=== PATIENT | male | born 1975 | race Caucasian/White ===

== ENCOUNTER 2017-11-25 08:21 | Emergency (ER) | payer MEDICAID | END 2017-11-25 09:52 | disposition home or self-care (01) | LOC: PHED 08:21 | DX: M25.561 Pain in right knee (principal); Z87.442 Personal history of urinary calculi; Z88.5 Allergy status to narcotic agent | CPT/HCPCS: 73564; 99283 ==

== ENCOUNTER 2017-12-20 10:50 | Emergency (ER) | payer MEDICAID ==
[~2017-12-20] VITALS: Ht 177.8 cm; Wt 100.0 kg
[2017-12-20 10:54] VITALS: BP 176/92; PULSE 104; RESP 16; TEMP 98.7; O2SAT 98
--- NOTE | 2017-12-20 11:29 | PD ---
HPI Chief Complaint: Cold / Flu Symptoms Time Seen by Provider: 11:07 Travel History International Travel<30 days: No Contact w/Intl Traveler<30days: No Traveled to known affect area: No History of Present Illness HPI 42-year-old male presents to the emergency room for evaluation of body aches, nonproductive cough, congestion, mild sore throat, and fever for the past 2-3 days. Maximum temperature was 101.7. Sore throat is mild and only occurs with coughing. He has been taking Motrin for body aches and fever with moderate relief in symptoms. Denies any chronic medical conditions or daily medications. PFSH Past Medical History Cancer: No Diabetes: No Diminished Hearing: No Hepatitis: No Hiatal Hernia: No Hypertension: No Kidney Stones: Yes (NOV 2011) Musculoskeletal: Yes (THORACIC OUTLET SYNDROME) Immunizations Current: Yes Thyroid Disease: No PNEUMOCCOCAL Vaccine (Year): 2 Past Surgical History Endocrine Surgery: Yes (THYMUS GLAND REMOVED 2001) Thoracic Surgery: Yes (X 2 FOR THORACIC OUTLET SYMDROME left shoulder) Other Surgery: Yes (Thymectomy) Social History Alcohol Use: Yes (rare) Tobacco Use: No (Quit 6 MONTHS ago) Substance Use: No (Denies) Allergies-Medications (Allergen,Severity, Reaction): Coded Allergies: hydromorphone (Unverified Allergy, Severe, hives, 12/20/17) meperidine (Unverified Allergy, Severe, "HIVES", 12/20/17) morphine (Unverified Allergy, Severe, "GET VIOLENT", 12/20/17) fentanyl (Unverified Allergy, Intermediate, Itching, 12/20/17) Reported Meds & Prescriptions Reported Meds & Active Scripts Active No Active Prescriptions or Reported Medications Review of Systems Except as stated in HPI: all other systems reviewed are Neg Physical Exam Narrative GENERAL: Well-nourished, well-developed male in no acute distress. Afebrile. Ambulatory. SKIN: Focused skin assessment warm/dry. HEAD: Normocephalic. EYES: No scleral icterus. No injection or drainage. NECK: Supple, trachea midline. No JVD or lymphadenopathy. ENT: Mucosa pink and moist. No erythema or exudates. No uvular edema. No uvular , palatal, or tonsillar deviation. Airway patent. Nasal turbinates appear normal without nasal blood, purulent drainage or septal hematoma. EARS: Bilateral pinnae and external canals appear within normal limits. Bilateral tympanic membranes without erythema, dullness or perforation. CARDIOVASCULAR: Regular rate and rhythm without murmurs, gallops, or rubs. RESPIRATORY: Breath sounds equal bilaterally. No accessory muscle use. There is Rales to the left upper lobe. No crackles or rhonchi. Data Data Last Documented VS Vital Signs Date Time Temp Pulse Resp B/P (MAP) Pulse Ox O2 Delivery O2 Flow Rate FiO2 12/20/17 11:01 16 12/20/17 10:54 98.7 104 176/92 (120) 98 Orders Orders Influenzae A/B Antigen (12/20/17 11:18) Chest, Pa & Lat (12/20/17 ) MDM Medical Decision Making Medical Screen Exam Complete: Yes Emergency Medical Condition: Yes Medical Record Reviewed: Yes Differential Diagnosis Pneumonia, flu, strep, URI Narrative Course 42-year-old male presents to the emergency room for evaluation of nonproductive cough, fever, body aches, sore throat, congestion for the past 2-3 days. Maximum temperature is 101.7. He has been taking [id number] medications with mild relief in symptoms. Patient is afebrile and well-appearing and emergency room. Vital signs stable. No increased work of breathing. There is coarse lung sounds especially to the left lung. No significant erythema of the pharynx. No evidence of otitis media. Influenza is negative. Chest x-ray shows masslike consolidation in the left upper lobe consistent with pneumonia or other. Patient given copy of report. He will be treated for pneumonia with azithromycin. Told to follow-up with primary care physician or return for worsening symptoms. He understands and agrees to plan. Diagnosis Primary Impression: Community acquired pneumonia Qualified Codes: J18.1 - Lobar pneumonia, unspecified organism Referrals: Primary Care Physician Additional Instructions: Azithromycin as directed, until gone. Follow-up with primary care physician. Return for worsening symptoms. Med/Other Pt SpecificInfo: Prescription(s) given Scripts No Active Prescriptions or Reported Meds Disposition: 01 DISCHARGE HOME Condition: Stable Mercy Moraes Dec 20, 2017 11:29
--- NOTE | 2017-12-20 11:46 | RADRPT ---
EXAM DATE/TIME: 12/20/2017 11:24 [facility] COMPARISON: No previous studies available for comparison. INDICATIONS : Cough, flu like symptoms x 3 days. MEDICAL HISTORY : Former smoker, Thoracic outlet syndrome. SURGICAL HISTORY : Chest surgery for thoracic outlet syndrome. Thymus gland removed. Right femur. Left knee. Right arm. ENCOUNTER: Initial ACUITY: 3 days PAIN SCORE: 0/10 LOCATION: chest FINDINGS: A focal opacity measuring 3-4 cm is identified in the left upper lobe. The opacity has mass like feat ures. Mild interstitial prominence is identified throughout both lungs. The right lung is clear. Postsurgical changes from prior median sternotomy are noted. CONCLUSION: 1. Masslike opacity in the left upper lobe characteristic of either a pulmonary mass or consolidative pneumonia. 2. Chronic lung changes. 3. Status post median sternotomy Humberto Mishra MD on December 20, 2017 at 11:42 Board Certified Radiologist. This report was verified electronically.
[2017-12-20] MEDS ORDERED: AZIT250T3 PO (12:02)
== END 2017-12-20 12:15 | disposition home or self-care (01) ==
LOC: PHEFT 10:50
DX: J18.1 Lobar pneumonia, unspecified organism (principal); Z87.442 Personal history of urinary calculi; Z87.891 Personal history of nicotine dependence; Z88.5 Allergy status to narcotic agent
CPT/HCPCS: 71046; 87804; 99284